=== PATIENT | male | born 1955 | race Caucasian/White ===

== ENCOUNTER 2020-05-15 08:42 | Outpatient (RCR) | payer BC, SELFPAY ==
[2020-05-15 09:02] VITALS: BP 198/84; PULSE 75; RESP 22; TEMP 36.6; BMI 62.8
--- NOTE | 2020-05-15 10:27 | HP.PCM_ITS ---
(1) Cellulitis of lower extremity Status: Chronic Qualifiers: Laterality: unspecified laterality Qualified Code(s): L03.119 - Cellulitis of unspecified part of limb Code(s): L03.119 - Cellulitis of unspecified part of limb (2) Obesity (BMI 35.0-39.9 without comorbidity) Status: Chronic Code(s): E66.9 - Obesity, unspecified (3) Peripheral vascular disease Status: Chronic Code(s): I73.9 - Peripheral vascular disease, unspecified History of Present Illness Date of Service: 05/15/20 Chief Complaint: Follow-up right lower leg ulcers for 2 weeks History of Wound: 65-year-old white obese male that has peripheral vascular disease with occlusions in his lower extremities. Has been seen here several times under different care for the same. Recently developed cellulitis in bilateral lower legs that he felt was the worst he seen really scared him he felt he almost could not walk. Seen in his [facility] doctors office and they did cultures which are unknown to us the results and put on doxycycline that he has been on for 20 days. He thinks it is a little bit better skin is not is warm to touch there is no apparent open areas at this point on his legs. But he is afraid that they are going to reopen. He has a high deductible insurance at this point but will be going on Medicare in July. He had met Dr. Malone a couple of years ago for the same but had no insurance was unable to afford the treatment. At this point we will continue using Xeroform to the scabbed areas and continue compression and follow-up in 2 weeks we also will order some lab work he is to follow-up with his family doctor. Past Medical History Past Medical History: Chronic Problems Obesity (BMI 35.0-39.9 without comorbidity) (Chronic) Lymphedema of both lower extremities (Chronic) Cellulitis of lower extremity (Chronic) Peripheral vascular disease (Chronic) Allergies/Adverse Reactions: Allergies aspirin Allergy (Verified 05/15/20 09:40) Hives ibuprofen Allergy (Verified 05/15/20 09:40) Hives Penicillins Allergy (Verified 05/15/20 09:40) Unknown Home Medications: Ambulatory Orders Medication Instructions Recorded Fluticasone 0.05% [Flonase Nasal 2 spray NASAL DAILY 09/30/16 Esmond] Furosemide [Lasix] 40 mg PO DAILY 12/20/15 Lisinopril [Zestril] 40 mg PO DAILY 12/20/15 Multivitamin [Daily Multiple 1 each PO DAILY 12/20/15 Vitamin] Naproxen Sodium 500 mg PO BID 12/20/15 Potassium Chloride Oral Tablet 10 meq PO DAILY 12/20/15 [K-Dur] traMADol [Ultram (G)] 50 mg PO Q4H PRN PRN 12/20/15 Amlodipine [Norvasc] 2.5 mg PO DAILY 05/15/20 Calcium Carbonate/Vitamin D3 1 ea PO DAILY 05/15/20 [Calcium 600 mg-D3 10 Mcg Sfgl] Lives: Alone Smoking Status: Former smoker Review of Systems Constitutional: Denies: Chills, Fever Eyes: Denies: Blurred vision, Drainage, Pain HEENT: Denies: Difficulty Hearing, Difficulty Swallowing, Sore Throat, Visual Changes Cardiovascular: Denies: Chest Pain, Palpitations, Syncope Respiratory: Denies: Cough, Shortness of Breath Gastrointestinal: Denies: Abdominal Pain, Nausea, Vomiting Genitourinary: Denies: Dysuria, Frequency Musculoskeletal: Reports: - - Lower extremity swelling. Denies: Joint Pain, Muscle pain Skin: Reports: Rash. Denies: Jaundice Neurological: Denies: Balance problems, Change in Speech, Difficulty swallowing, Focal weakness Psychiatric: Denies: Anxiety, Depression Endocrine: Denies: Change in Body Habitus Hematologic/ Lymphatic: Denies: Adenopathy - Physical Exam Vital Signs Temp Pulse Resp BP 97.9 F 75 22 H 198/84 H 05/15/20 09:02 05/15/20 09:02 05/15/20 09:02 05/15/20 09:02 General: Oriented x3, Cooperative, Well developed HEENT: Atraumatic, PERRLA Oral: Moist Mucosa Neck: Supple, No JVD Lungs: Clear to auscultation, Normal air movement Cardiovascular: Regular rate, Regular Rhythm Abdomen: Bowel Sounds Present, Soft, Non Tender, No Hepato-splenomegaly Extremities: No clubbing, Diminished Peripheral Pulses, Edema Skin: Rash Present - Bilateral lower legs Wound Measurements and Assessment WC - Nurse 1 - General Ulcer Measurement Start: 05/15/20 09:02 Freq: Status: Active Protocol: Activity Type Activity Date Activity User E-Sign Co-Sign Detail Recorded Client Recorded Date Recorded By Document 05/15/20 09:02 [facility] [id number] 05/15/20 09:24 [facility] 05/15/20 09:02 Wound Center Nurse 1 [Ulcer Assessment] #4- L GR TOE PLANTAR (FISSURE) -Combined with other wound No -Current Size (cm) - Length 0.1 -Current Size (cm) - Width 1.2 -Current Size (cm) - Depth 0.2 -Total Square Cm 0.12 -Date of Last Picture (Recall this 05/15/20 field) -Photo Taken Yes -Epithelialization None Present -Tunneling No -Undermining/Tunneling No -Circular Undermining No -Exudate Amt None Present -Wound Margin Distinct, Outline Attached -Granulation Amt Medium (34-66%) -Granulation Quality Red -Slough/Fibrin Yes -Necrosis Amt Small (1-33%) -Necrotic Tissue Type Adherent Slough -Texture (Suzanna-wound Skin Appearance) Assessed,Callus ,Scarring -Moisture (Suzanna-wound Skin Appearance Assessed,Dry/ ) Scaly -Color (Suzanna-wound Skin Appearance) Assessed -Temperature (Suzanna-wound Skin No Abnormality Appearance) (Pt Warm) -Tenderness on Palpation (Suzanna-wound No Skin Appearance) -Ulcer Cleansing Rinsed/ Irrigated with Saline -Foul Odor after Cleansing No -Anesthetic Used 5% Lidocaine Gel #3- R MUÑOZ -Combined with other wound No -Current Size (cm) - Length 2.5 -Current Size (cm) - Width 1.9 -Current Size (cm) - Depth 0.1 -Total Square Cm 4.75 -Date of Last Picture (Recall this 05/15/20 field) -Photo Taken Yes -Epithelialization None Present -Tunneling No -Undermining/Tunneling No -Circular Undermining No -Exudate Amt Small -Exudate Type Serosanguineous -Wound Margin Distinct, Outline Attached -Granulation Amt Large (67-100%) -Granulation Quality Red -Slough/Fibrin No -Necrosis Amt None Present (0 %) -Texture (Suzanna-wound Skin Appearance) Assessed, Scarring -Moisture (Suzanna-wound Skin Appearance Assessed ) -Color (Suzanna-wound Skin Appearance) Assessed, Hemosiderin Staining -Temperature (Suzanna-wound Skin No Abnormality Appearance) (Pt Warm) -Tenderness on Palpation (Suzanna-wound No Skin Appearance) -Ulcer Cleansing Rinsed/ Irrigated with Saline -Foul Odor after Cleansing No -Anesthetic Used 4% Lidocaine Solution #2- R LAT LE -Combined with other wound No -Current Size (cm) - Length 14 -Current Size (cm) - Width 28 -Current Size (cm) - Depth 0.1 -Total Square Cm 392 -Date of Last Picture (Recall this 05/15/20 field) -Photo Taken Yes -Epithelialization None Present -Tunneling No -Undermining/Tunneling No -Circular Undermining No -Exudate Amt Large -Exudate Type Serosanguineous -Wound Margin Distinct, Outline Attached -Granulation Amt Small (1-33%) -Granulation Quality [place] -Slough/Fibrin Yes -Necrosis Amt Large (67-100%) -Necrotic Tissue Type Adherent Slough -Texture (Suzanna-wound Skin Appearance) Assessed, Scarring -Moisture (Suzanna-wound Skin Appearance Assessed, ) Maceration -Color (Suzanna-wound Skin Appearance) Assessed, Erythema, Hemosiderin Staining,Palor -Temperature (Suzanna-wound Skin No Abnormality Appearance) (Pt Warm) -Tenderness on Palpation (Suzanna-wound No Skin Appearance) -Ulcer Cleansing Rinsed/ Irrigated with Saline -Foul Odor after Cleansing No -Anesthetic Used 4% Lidocaine Solution [Edema Assessment] -Lower Limb Edema Present Yes -Right Calf (cm) 61 -Right Ankle (cm) 39 -Left Calf (cm) 60 -Left Ankle (cm) 42 WC - Nurse 2 - General Ulcer CM Notes Start: 05/15/20 09:02 Freq: Status: Active Protocol: Activity Type Activity Date Activity User E-Sign Co-Sign Detail Recorded Client Recorded Date Recorded By Document 05/15/20 09:31 MW [id number] 05/15/20 09:38 MW 05/15/20 09:31 Wound Center Nurse 2 [Procedure/Treatment] #4- L GR TOE PLANTAR (FISSURE) -Time 09:35 -Correct Patient Yes -Correct Side, Site, Position Yes -Correct Procedure Yes -Procedure Performed No -Tunneling No -Undermining/Tunneling No -Circular Undermining No -Wound/Ulcer Outcome Not Healed -Ulcer Cleansing Not Cleansed -Bleeding Controlled with NA -Offloading No #3- R MUÑOZ -Time 09:36 -Correct Patient Yes -Correct Side, Site, Position Yes -Correct Procedure Yes -Procedure Performed No -Tunneling No -Undermining/Tunneling No -Circular Undermining No -Wound/Ulcer Outcome Not Healed -Ulcer Cleansing Not Cleansed -Bleeding Controlled with NA -Offloading No #2- R LAT LE -Time 09:36 -Correct Patient Yes -Correct Side, Site, Position Yes -Tunneling No -Undermining/Tunneling No -Circular Undermining No -Wound/Ulcer Outcome Not Healed -Ulcer Cleansing Not Cleansed -Foul Odor after Cleansing No -Bioengineered Tissue No -Bleeding Controlled with NA -Offloading No [See Physician Procedure note for Specifics] Pain Scale: 0-10 Numeric [Pain] -Is Patient Pain Free? Yes - Nurse 3 - General Ulcer D/C NN Start: 05/15/20 09:02 Freq: Status: Active Protocol: Activity Type Activity Date Activity User E-Sign Co-Sign Detail Recorded Client Recorded Date Recorded By Document 05/15/20 09:59 ROGER [id number] 05/15/20 10:01 ROGER 05/15/20 09:59 Wound Care Nurse 3 [Wound Dressing] #4- L GR TOE PLANTAR (FISSURE) -Ulcer Cleansing Rinsed/ Irrigated with Saline #3- R MUÑOZ -Ulcer Cleansing Rinsed/ Irrigated with Saline -Foul Odor after Cleansing No -Primary Dressing Applied NonAdherent Contact Layer -Other Dressing xeroform -Primary Dressing Covered/Secured Dry Gauze, with Secured with Tape #2- R LAT LE -Ulcer Cleansing Rinsed/ Irrigated with Saline -Foul Odor after Cleansing No -Primary Dressing Covered/Secured Dry Gauze, with Secured with Tape [Compression Applied] Right -Tubular Bandage Double Layer -Size of Tubigrip Used Size F -Size F ($) 2 Left -Tubular Bandage Double Layer -Size of Tubigrip Used Size F -Size F ($) 2 Pain Scale: 0-10 Numeric [Pain] -Is Patient Pain Free? Yes - Visit Discharge [Visit Discharge Information] -Discharge Condition Stable -Ambulatory Status Cane -Transportation Private Auto Musculoskeletal: No Tenderness to Palpation of Joints or Extremities Lymphatic: No Cervical, Supraclavicular, or Inguinal Adenopathy Neurological: Cranial nerves II-XII grossly intact, Neuro grossly intact Psych/Mental Status: Normal Affect, Appropriate Debridement Note Post-Debridement Measurements/Treatment MIRIAM - Nurse 2 - General Ulcer CM Notes Start: 05/15/20 09:02 Freq: Status: Active Protocol: Activity Type Activity Date Activity User E-Sign Co-Sign Detail Recorded Client Recorded Date Recorded By Document 05/15/20 09:31 MW [id number] 05/15/20 09:38 MW 05/15/20 09:31 Wound Center Nurse 2 #4- L GR TOE PLANTAR (FISSURE) -Time 09:35 -Correct Patient Yes -Correct Side, Site, Position Yes -Correct Procedure Yes -Procedure Performed No -Tunneling No -Undermining/Tunneling No -Circular Undermining No -Wound/Ulcer Outcome Not Healed -Ulcer Cleansing Not Cleansed -Bleeding Controlled with NA -Offloading No #3- R MUÑOZ -Time 09:36 -Correct Patient Yes -Correct Side, Site, Position Yes -Correct Procedure Yes -Procedure Performed No -Tunneling No -Undermining/Tunneling No -Circular Undermining No -Wound/Ulcer Outcome Not Healed -Ulcer Cleansing Not Cleansed -Bleeding Controlled with NA -Offloading No #2- R LAT LE -Time 09:36 -Correct Patient Yes -Correct Side, Site, Position Yes -Tunneling No -Undermining/Tunneling No -Circular Undermining No -Wound/Ulcer Outcome Not Healed -Ulcer Cleansing Not Cleansed -Foul Odor after Cleansing No -Bioengineered Tissue No -Bleeding Controlled with NA -Offloading No Pain Scale: 0-10 Numeric Is Patient Pain Free? Yes MIRIAM - Nurse 3 - General Ulcer D/C NN Start: 05/15/20 09:02 Freq: Status: Active Protocol: Activity Type Activity Date Activity User E-Sign Co-Sign Detail Recorded Client Recorded Date Recorded By Document 05/15/20 09:59 KR [id number] 05/15/20 10:01 KR 05/15/20 09:59 Wound Care Nurse 3 #4- L GR TOE PLANTAR (FISSURE) -Ulcer Cleansing Rinsed/ Irrigated with Saline #3- R MUÑOZ -Ulcer Cleansing Rinsed/ Irrigated with Saline -Foul Odor after Cleansing No -Primary Dressing Applied NonAdherent Contact Layer -Other Dressing xeroform -Primary Dressing Covered/Secured with Dry Gauze, Secured with Tape #2- R LAT LE -Ulcer Cleansing Rinsed/ Irrigated with Saline -Foul Odor after Cleansing No -Primary Dressing Covered/Secured with Dry Gauze, Secured with Tape Right -Tubular Bandage Double Layer -Size of Tubigrip Used Size F -Size F ($) 2 Left -Tubular Bandage Double Layer -Size of Tubigrip Used Size F -Size F ($) 2 Pain Scale: 0-10 Numeric Is Patient Pain Free? Yes WC - Visit Discharge Discharge Condition Stable Ambulatory Status Cane Transportation Private Auto No debridement was completed today Assessment/Plan CBC hemoglobin A1c and prealbumin Assessment: Cellulitis lower extremity bilateral. Lymphedema. Obesity Plan: Xeroform to scabbed areas cover with gauze Elizabet. Double layer Tubigrip to bilateral lower legs. Get labs drawn and will call with results. Follow-up in 1 week
[2020-05-15 10:48] LABS: Absolute Lymphocyte Count 2.27 X10^3/uL (0.83-4.51); Absolute Neutrophil Count 5.7 X10^3/uL (2.0-7.7); Basophil# 0.06 X10^3/uL; Basophil% 0.6 % (0-1); Eosinophil# 0.47 X10^3/uL; Hematocrit 39.4 % (40-54); Hemoglobin 11.9 g/dL (13.0-16.5); Lymphocyte # 2.27 X10^3/ul (4.0); Lymphocyte % 24.2 % (19-41); Mean Corp Hgb Conc 30.2 g/dL (32-36); Mean Corpuscular Hgb 27.3 pg (27.0-32.0); Mean Corpuscular Volume 90.4 fL (80-94); Mean Platelet Vol. 10.3 fl (6.2-12.0); Monocyte# 0.84 X10^3/uL; NRBC Flagged by Analyzer 0 % (0-5); Neutrophil # 5.68 X10^3/uL (2.7-7.7); Neutrophil % 60.7 % (47-70); Platelet Count 299 K/mm3 (150-450); RBC Distribution Width CV 15.3 % (11.6-14.6); RBC Distribution Width SD 50.9 fl (35.1-43.9); Red Blood Count 4.36 M/mm3 (4.6-6.2); White Blood Count 9.4 K/mm3 (4.4-11.0)
[2020-05-15 11:05] LABS: Hemoglobin A1c 5.2 % (3.8-5.6)
[2020-05-15 11:17] LABS: Prealbumin 24.7 mg/dL (20.0-40.0)
== END 2020-05-19 23:59 ==
LOC: WC 08:42
PROVIDERS: PCP Internal Medicine; Visit Provider Nurse Practitioner
DX: I73.9 Peripheral vascular disease, unspecified (principal); E66.9 Obesity, unspecified; L03.116 Cellulitis of left lower limb; L03.115 Cellulitis of right lower limb; I89.0 Lymphedema, not elsewhere classified; Z79.899 Other long term (current) drug therapy; Z87.891 Personal history of nicotine dependence
CPT/HCPCS: 36415; 83036; 84134; 85025; 99203; G0463

== ENCOUNTER 2020-05-29 11:00 | Outpatient (RCR) | payer BC, SELFPAY ==
[2020-05-20 00:40] VITALS: BP 198/84; PULSE 75; RESP 22; TEMP 36.6
[2020-05-29 10:50] VITALS: BP 179/81; PULSE 78; TEMP 36.9; BMI 62.8
[2020-05-29 11:22] VITALS: BP 168/75
--- NOTE | 2020-05-29 11:43 | PCM.WC.PN ---
(1) Cellulitis of lower extremity Status: Chronic Qualifiers: Code(s): L03.119 - Cellulitis of unspecified part of limb (2) Lymphedema of both lower extremities Status: Chronic Code(s): I89.0 - Lymphedema, not elsewhere classified (3) Obesity (BMI 35.0-39.9 without comorbidity) Status: Chronic Code(s): E66.9 - Obesity, unspecified (4) Peripheral vascular disease Status: Chronic Code(s): I73.9 - Peripheral vascular disease, unspecified Type of Wound Date of Service: 05/29/20 Chief Complaint: Follow-up right lower leg ulcers for 2 weeks History of Wound: 65-year-old white obese male that has peripheral vascular disease with occlusions in his lower extremities. Has been seen here several times under different care for the same. Recently developed cellulitis in bilateral lower legs that he felt was the worst he seen really scared him he felt he almost could not walk. Seen in his [facility] doctors office and they did cultures which are unknown to us the results and put on doxycycline that he has been on for 20 days. He thinks it is a little bit better skin is not is warm to touch there is no apparent open areas at this point on his legs. But he is afraid that they are going to reopen. He has a high deductible insurance at this point but will be going on Medicare in July. He had met Dr. Malone a couple of years ago for the same but had no insurance was unable to afford the treatment. At this point we will continue using Xeroform to the scabbed areas and continue compression and follow-up in 2 weeks we also will order some lab work he is to follow-up with his family doctor. Progress of Wound: So basically all of his wounds are closed patient will be discharged from the wound center and because of his insurance dilemma he he goes on Medicare in August. Suggested he return in August for repeat studies on his legs and follow-up with Dr. Malone for vascular for his blockages in the saphenous area on both legs it is apparent with the staining and the skin breakdown at that areas. Patient was encouraged also to quit drinking pop and to get out and move and patient encouraged to do stretching and to eat better and try to lose weight. Patient is continue with covering the areas that weep with gauze or with ABD pads then with Elizabet and continue compression. Labs show anemia and no malnutrition but he is on the low end of normal. - Physical Exam Vital Signs Temp Pulse Resp BP 98.4 F 78 22 H 168/75 H 05/29/20 10:50 05/29/20 10:50 05/20/20 00:40 05/29/20 11:22 General: Oriented x3, Cooperative, Well developed HEENT: Atraumatic, PERRLA Oral: Moist Mucosa Neck: Supple, No JVD Lungs: Clear to auscultation, Normal air movement Cardiovascular: Regular rate, Regular Rhythm Abdomen: Bowel Sounds Present, Soft, Non Tender, No Hepato-splenomegaly Extremities: No clubbing, No edema Skin: Ulcer/ Wound - Skin raised rashes circumferential to the right lower leg pedal edema xerosis of the bilateral feet Wound Measurements and Assessment WC - Nurse 1 - General Ulcer Measurement Start: 05/29/20 10:49 Freq: Status: Active Protocol: Activity Type Activity Date Activity User E-Sign Co-Sign Detail Recorded Client Recorded Date Recorded By Document 05/29/20 10:50 ROGER [id number] 05/29/20 11:00 ROGER 05/29/20 10:50 Wound Center Nurse 1 [Ulcer Assessment] #5 Right Lateral Superior -Current Size (cm) - Length 2.3 -Current Size (cm) - Width 2.2 -Current Size (cm) - Depth 0.1 -Total Square Cm 5.06 -Exudate Amt Medium -Exudate Type Serosanguineous -Wound Margin Distinct, Outline Attached -Granulation Amt Medium (34-66%) -Granulation Quality Red -Necrosis Amt Medium (34-66%) -Necrotic Tissue Type Adherent Slough -Texture (Suzanna-wound Skin Appearance) Assessed, Scarring -Moisture (Suzanna-wound Skin Appearance No Abnormality, ) Assessed -Color (Suzanna-wound Skin Appearance) Assessed, Hemosiderin Staining -Temperature (Suzanna-wound Skin No Abnormality Appearance) (Pt Warm) -Tenderness on Palpation (Suzanna-wound No Skin Appearance) -Ulcer Cleansing Rinsed/ Irrigated with Saline -Foul Odor after Cleansing No -Anesthetic Used 4% Lidocaine Solution #4- L GR TOE PLANTAR (FISSURE) -Current Size (cm) - Length 0.1 -Current Size (cm) - Width 0.1 -Current Size (cm) - Depth 0.1 -Total Square Cm 0.01 -Exudate Amt None Present -Wound Margin Distinct, Outline Attached -Granulation Amt None Present (0 %) -Necrosis Amt None Present (0 %) -Texture (Suzanna-wound Skin Appearance) Assessed, Scarring -Moisture (Suzanna-wound Skin Appearance No Abnormality, ) Assessed -Color (Suzanna-wound Skin Appearance) No Abnormality, Assessed -Temperature (Suzanna-wound Skin No Abnormality Appearance) (Pt Warm) -Tenderness on Palpation (Suzanna-wound No Skin Appearance) -Ulcer Cleansing Rinsed/ Irrigated with Saline -Foul Odor after Cleansing No -Anesthetic Used 4% Lidocaine Solution #3- R MUÑOZ -Current Size (cm) - Length 0.6 -Current Size (cm) - Width 0.7 -Current Size (cm) - Depth 0.1 -Total Square Cm 0.42 -Exudate Amt Medium -Exudate Type Serosanguineous -Wound Margin Distinct, Outline Attached -Granulation Amt Medium (34-66%) -Granulation Quality Red -Necrosis Amt Medium (34-66%) -Necrotic Tissue Type Adherent Slough -Texture (Suzanna-wound Skin Appearance) Assessed, Scarring -Moisture (Suzanna-wound Skin Appearance No Abnormality, ) Assessed -Color (Suzanna-wound Skin Appearance) Assessed, Hemosiderin Staining -Temperature (Suzanna-wound Skin No Abnormality Appearance) (Pt Warm) -Tenderness on Palpation (Suzanna-wound No Skin Appearance) -Ulcer Cleansing Rinsed/ Irrigated with Saline -Foul Odor after Cleansing No -Anesthetic Used 4% Lidocaine Solution #2- R LAT LE -Current Size (cm) - Length 14.3 -Current Size (cm) - Width 18 -Current Size (cm) - Depth 0.1 -Total Square Cm 257.4 -Exudate Amt Medium -Exudate Type Serosanguineous -Wound Margin Distinct, Outline Attached -Granulation Amt Medium (34-66%) -Granulation Quality Red -Necrosis Amt Medium (34-66%) -Necrotic Tissue Type Adherent Slough -Texture (Suzanna-wound Skin Appearance) Assessed, Scarring -Moisture (Suzanna-wound Skin Appearance No Abnormality, ) Assessed -Color (Suzanna-wound Skin Appearance) Assessed, Hemosiderin Staining -Temperature (Suzanna-wound Skin No Abnormality Appearance) (Pt Warm) -Tenderness on Palpation (Suzanna-wound No Skin Appearance) -Ulcer Cleansing Rinsed/ Irrigated with Saline -Foul Odor after Cleansing No -Anesthetic Used 4% Lidocaine Solution [Edema Assessment] -Right Calf (cm) 58.5 -Right Ankle (cm) 37.6 -Left Calf (cm) 59 -Left Ankle (cm) 36.7 MIRIAM - Nurse 2 - General Ulcer CM Notes Start: 05/29/20 10:49 Freq: Status: Active Protocol: Activity Type Activity Date Activity User E-Sign Co-Sign Detail Recorded Client Recorded Date Recorded By Document 05/29/20 11:04 MW [id number] 05/29/20 11:14 MW 05/29/20 11:04 Wound Center Nurse 2 [Procedure/Treatment] #5 Right Lateral Superior -Time 11:07 -Correct Patient Yes -Correct Side, Site, Position Yes -Correct Procedure Yes -Procedure Performed No -Post Debridement (cm) - Length 0 -Post Debridement (cm) - Width 0 -Post Debridement (cm) - Depth 0 -Total Square (Post) (cm) 0 -Wound/Ulcer Outcome Healed- Epithelialized #4- L GR TOE PLANTAR (FISSURE) -Time 11:05 -Correct Patient Yes -Correct Side, Site, Position Yes -Correct Procedure Yes -Procedure Performed No -Post Debridement (cm) - Length 0 -Post Debridement (cm) - Width 0 -Post Debridement (cm) - Depth 0 -Total Square (Post) (cm) 0 -Wound/Ulcer Outcome Healed- Epithelialized #3- R MUÑOZ -Time 11:05 -Correct Patient Yes -Correct Side, Site, Position Yes -Correct Procedure Yes -Procedure Performed No -Post Debridement (cm) - Length 0 -Post Debridement (cm) - Width 0 -Post Debridement (cm) - Depth 0 -Total Square (Post) (cm) 0 -Wound/Ulcer Outcome Healed- Epithelialized #2- R LAT LE -Time 11:12 -Correct Patient Yes -Correct Side, Site, Position Yes -Correct Procedure Yes -Procedure Performed No -Post Debridement (cm) - Length 0 -Post Debridement (cm) - Width 0 -Post Debridement (cm) - Depth 0 -Total Square (Post) (cm) 0 -Wound/Ulcer Outcome Healed- Epithelialized [See Physician Procedure note for Specifics] Pain Scale: 0-10 Numeric [Pain] -Is Patient Pain Free? Yes MIRIAM - Nurse 3 - General Ulcer D/C NN Start: 05/29/20 10:49 Freq: Status: Active Protocol: Activity Type Activity Date Activity User E-Sign Co-Sign Detail Recorded Client Recorded Date Recorded By Document 05/29/20 11:22 KR [id number] 05/29/20 11:30 KR 05/29/20 11:22 Wound Care Nurse 3 [Compression Applied] Right -Tubular Bandage Double Layer -Size of Tubigrip Used Size F -Size F ($) 2 Left -Tubular Bandage Double Layer -Size of Tubigrip Used Size F -Size F ($) 2 Vital Signs [Blood Pressure] -Blood Pressure (90/60-120/80 mm Hg) 168/75 H -Blood Pressure Mean (mm Hg) 106 -Source Monitor -Position Sitting -Blood Pressure Location Right Arm Pain Scale: 0-10 Numeric [Pain] -Is Patient Pain Free? Yes WC - Visit Discharge [Visit Discharge Information] -Discharge Condition Stable -Ambulatory Status Ambulatory,Cane -Transportation Private Auto Musculoskeletal: No Tenderness to Palpation of Joints or Extremities Lymphatic: No Cervical, Supraclavicular, or Inguinal Adenopathy Neurological: Cranial nerves II-XII grossly intact, Neuro grossly intact Psych/Mental Status: Normal Affect, Appropriate Debridement Note Post-Debridement Measurements/Treatment WC - Nurse 2 - General Ulcer CM Notes Start: 05/29/20 10:49 Freq: Status: Active Protocol: Activity Type Activity Date Activity User E-Sign Co-Sign Detail Recorded Client Recorded Date Recorded By Document 05/29/20 11:04 MW [id number] 05/29/20 11:14 MW 05/29/20 11:04 Wound Center Nurse 2 #5 Right Lateral Superior -Time 11:07 -Correct Patient Yes -Correct Side, Site, Position Yes -Correct Procedure Yes -Procedure Performed No -Post Debridement (cm) - Length 0 -Post Debridement (cm) - Width 0 -Post Debridement (cm) - Depth 0 -Total Square (Post) (cm) 0 -Wound/Ulcer Outcome Healed- Epithelialized #4- L GR TOE PLANTAR (FISSURE) -Time 11:05 -Correct Patient Yes -Correct Side, Site, Position Yes -Correct Procedure Yes -Procedure Performed No -Post Debridement (cm) - Length 0 -Post Debridement (cm) - Width 0 -Post Debridement (cm) - Depth 0 -Total Square (Post) (cm) 0 -Wound/Ulcer Outcome Healed- Epithelialized #3- R MUÑOZ -Time 11:05 -Correct Patient Yes -Correct Side, Site, Position Yes -Correct Procedure Yes -Procedure Performed No -Post Debridement (cm) - Length 0 -Post Debridement (cm) - Width 0 -Post Debridement (cm) - Depth 0 -Total Square (Post) (cm) 0 -Wound/Ulcer Outcome Healed- Epithelialized #2- R LAT LE -Time 11:12 -Correct Patient Yes -Correct Side, Site, Position Yes -Correct Procedure Yes -Procedure Performed No -Post Debridement (cm) - Length 0 -Post Debridement (cm) - Width 0 -Post Debridement (cm) - Depth 0 -Total Square (Post) (cm) 0 -Wound/Ulcer Outcome Healed- Epithelialized Pain Scale: 0-10 Numeric Is Patient Pain Free? Yes - Nurse 3 - General Ulcer D/C NN Start: 05/29/20 10:49 Freq: Status: Active Protocol: Activity Type Activity Date Activity User E-Sign Co-Sign Detail Recorded Client Recorded Date Recorded By Document 05/29/20 11:22 ROGER [id number] 05/29/20 11:30 ROGER 05/29/20 11:22 Wound Care Nurse 3 Right -Tubular Bandage Double Layer -Size of Tubigrip Used Size F -Size F ($) 2 Left -Tubular Bandage Double Layer -Size of Tubigrip Used Size F -Size F ($) 2 Vital Signs Blood Pressure (90/60-120/80 mm Hg) 168/75 H Blood Pressure Mean (mm Hg) 106 Source Monitor Position Sitting Blood Pressure Location Right Arm Pain Scale: 0-10 Numeric Is Patient Pain Free? Yes - Visit Discharge Discharge Condition Stable Ambulatory Status Ambulatory,Cane Transportation Private Auto No debridement was completed today Assessment/Plan Active Problems Obesity (BMI 35.0-39.9 without comorbidity) (Chronic) Lymphedema of both lower extremities (Chronic) Cellulitis of lower extremity (Chronic) Peripheral vascular disease (Chronic) Assessment: Cellulitis lower extremity bilateral. Lymphedema. Obesity Plan: ABDs to raised areas cover with gauze Elizabet. Double layer Tubigrip to bilateral lower legs. Follow-up in August for further studies after getting on Medicare.
== END 2020-05-29 11:43 | disposition home or self-care (01) ==
LOC: WC 11:00
PROVIDERS: PCP Internal Medicine; Visit Provider Nurse Practitioner
DX: I73.9 Peripheral vascular disease, unspecified (principal); L03.115 Cellulitis of right lower limb; L03.116 Cellulitis of left lower limb; I89.0 Lymphedema, not elsewhere classified; E66.9 Obesity, unspecified
CPT/HCPCS: 99213; G0463

== ENCOUNTER 2023-10-22 17:09 | Emergency (ER) | payer MEDICARE, SELFPAY ==
[2023-10-22 17:09] VITALS: BP 190/84; BP 196/84; PULSE 82; PULSE 87; RESP 14; RESP 22; TEMP 37.2; O2SAT 96; O2SAT 98
[2023-10-22 17:12] VITALS: BMI 58.5
--- NOTE | 2023-10-22 17:26 | EX.ED.DYSGE1 ---
HPI History of Present Illness Chief Complaint: Wound [facility] Medical History (Updated 10/22/23 @ 19:[address] Keith Redd, DO) Morbid obesity Nasal polyps Lymphedema Former smoker Sleep apnea Hypertension Home Medications ?Medication ?Instructions ?Recorded ?Last Taken ?Type fluticasone propionate 50 2 spray DAILY 12/20/15 Unknown History mcg/actuation nasal spray,suspension furosemide 40 mg tablet 40 mg PO DAILY 12/20/15 Unknown History lisinopril 40 mg tablet 40 mg PO DAILY 12/20/15 Unknown History multivitamin (Daily Multiple 1 ea PO DAILY 12/20/15 Unknown History tablet) naproxen sodium 220 mg capsule 500 mg PO Q12H PRN pain 12/20/15 Unknown History potassium chloride 20 mEq 10 meq PO DAILY 12/20/15 Unknown History tablet,extended release(part/cryst) (Klor-Con M) amlodipine 2.5 mg tablet 2.5 mg PO DAILY 05/15/20 Unknown History calcium carbonate 600 mg-vitamin 1 ea PO DAILY 05/15/20 Unknown History D3 10 mcg (400 unit) capsule sulfamethoxazole 800 1 tab PO BID #14 tabs 10/22/23 Unknown Rx mg-trimethoprim 160 mg tablet (Bactrim DS) Allergy/AdvReac Type Severity Reaction Status Date / Time aspirin Allergy Hives Verified 10/22/23 17:09 ibuprofen Allergy Hives Verified 10/22/23 17:09 Penicillins Allergy Unknown Verified 10/22/23 17:09 Social History Smoking Status: Former smoker EXAM Physical Exam Const Vital Signs: 10/22/23 17:09 10/22/23 17:09 10/22/23 18:12 Temperature 99 F 98.2 F Temperature Source Temporal Oral Pulse Rate 87 82 56 L Respiratory Rate 22 H 14 18 Blood Pressure 190/84 H 196/84 H 159/71 H Blood Pressure Mean 119 121 100 Pulse Ox 98 96 95 Oxygen Delivery Method Room Air Room Air Room Air 10/22/23 19:36 10/22/23 20:00 10/22/23 20:38 Temperature 97.7 F L 97.8 F 97.6 F L Temperature Source Temporal Temporal Pulse Rate 56 L 56 L 52 L Respiratory Rate 20 H 18 16 Blood Pressure 154/88 H 152/69 H 150/50 H Blood Pressure Mean 110 96 83 Pulse Ox 94 97 98 Oxygen Delivery Method Room Air MDM MDM MDM Narrative Medical decision making narrative: HISTORY OF PRESENT ILLNESS: 68-year-old male presents with concern for left foot infection. Notes drainage and blisters. Symptoms ongoing past week. Notes low-grade fevers. He denies vomiting. Denies history abdominal surgery. Notes history of lymphedema. Denies history of type 2 diabetes. REVIEW OF SYSTEMS: Pertinent positives: Skin redness, fever Pertinent negatives: Chest pain, shortness of breath, fever, cough, pain PHYSICAL EXAM: Nursing triage notes reviewed, Vital signs reviewed Constitutional: please see mdm HENT: MMM Eyes: Pupils equal round and reactive to light, Extraocular muscles intact Neck: No stridor, no JVD, full neck ROM Lungs: Clear to auscultation, No wheezing or rales. No increased work of breathing, no conversational dyspnea, no accessory muscle use, no nasal flaring. No respiratory distress noted Heart: Regular rate and rhythm, No murmurs, No rubs and No gallops, 2+ distal pulses (radial, femoral, posterior tibial) in all extremities Abdomen: Soft, there is no tenderness, rigidity, rebound or guarding, no obvious peritoneal signs, no palpable pulsatile abdominal masses, no auscultated abdominal bruit : No CVAT Extremities: No edema Neuro: No focal neurological deficits, cranial nerves II through XII intact, 5/5 strength in all extremities. Intact sensation to light touch in all extremities, 2+ reflexes bilateral patella tendons. Normal gait. No ataxia. Skin: Chronic venous stasis changes noted to bilateral lower extremities, exam consistent with lymphedema, noted erythema noted to dorsal surface of left foot, no fluctuance induration, there is skin breakdown over the dorsal surface and a chronic appearing ulceration to the left great toe on the plantar surface. There is no crepitus or bullae fluctuance or induration. Pain is not out of portion to exam. MEDICAL DECISION MAKING: Chief Complaint: Concern for foot infection External records reviewed: Reviewed prior encounters for lower extremity cellulitis from 2020 Factors affecting care: Hypertension, obesity, history of cellulitis in lower extremity, interventions, for edema in bilateral lower extremity Social determinants of health: none History obtained from others: none Consults: none [facility] Narrative: Patient is initially hypertensive with a blood pressure 190/84, he was tachypneic with respirate of 22 he is otherwise afebrile and nontoxic-appearing I considered the following differential diagnosis: Cellulitis, necrotizing fasciitis, septic arthritis, abscess There is no clinical exam evidence suggest necrotizing fasciitis, septic arthritis or abscess Patient is suffering from likely cellulitis. Will give empiric IV vancomycin (2 g), 500 cc of IV fluid and determine disposition based on results of lab studies Labs were obtained to ascertain any sign of systemic inflammation, endorgan hypoperfusion. ALL IMAGES (IF OBTAINED) HAVE BEEN PERSONALLY REVIEWED AND INTERPRETED BY MYSELF. CBC without leukocytosis, severe anemia, no thrombocytopenia BMP without evidence of significant electrolyte abnormalities, no anion gap, no acute kidney injury. Lactate is wnl indicating no end-organ hypoperfusion and/or hypoxia. X-ray left foot was read reviewed personally by myself shows no evidence of obvious bony abnormality or osteomyelitis. Awaiting radiologist interpretation. Radiology agrees my interpretation. On reevaluation patient's blood pressure improved 159/71, tachypnea resolved. Patient remained afebrile. He is appropriate for discharge home with oral antibiotics and strict return precautions. The patient and/or family, caregivers express understanding. The patient and/or family, caregivers agrees with the plan. Shared decision making: I will have a discussion with the patient and or visitors regarding risk/benefits of further testing or admission. They will be made aware of of the risk/benefits inherent in this decision they will be given the opportunity to voice understanding. Total critical care time today provided was at least 0 minutes. This excludes separately billable procedures. Critical care time (if documented) is secondary to the patient having high probability of clinically significant/life threatening deterioration in the patient's condition which required my urgent intervention. Impression: 1. Right lower extremity cellulitis 2. History of lymphedema Dispo: Discharge home This note was generated with [employer] dictation software. It may contain incorrect words, spelling, and punctuation that were not noted in review of the chart prior to signing. Lab Data Labs: Laboratory Results - last 24 hr 10/22/23 17:50 WBC 7.8 RBC 4.62 Hgb 12.8 L Hct 41.1 MCV 89.0 MCH 27.7 MCHC 31.1 L RDW Std Deviation 49.3 H RDW Coeff of Jesse 15.3 H Plt Count 237 MPV 10.5 Sodium 142 Potassium 4.0 Chloride 113 H Carbon Dioxide 27.0 Anion Gap 2 L BUN 19 H Creatinine 1.30 Estim Creat Clear Calc 102.99 Est GFR (MDRD) Af Amer 71 Est GFR (MDRD) Non-Af 58 L BUN/Creatinine Ratio 14.6 Glucose 102 Lactic Acid 0.9 Calcium 9.0 Radiography Diagnostic Testing: Clinical Impression(s) from Imaging Studies Foot X-Ray 10/22/23 19:05 IMPRESSION: No fracture. No dislocation. No definite destructive lesion of the bones. Dorsal soft tissue swelling. Electronically Signed: Castillo Bray MD at 20:11 EDT , Discharge Plan Triage Chief Complaint: Wound ED Provider: Keith Redd Dx/Rx/DC Orders Clinical Impression: Cellulitis of lower extremity Instructions: Cellulitis Prescriptions: New sulfamethoxazole-trimethoprim [Bactrim DS] 800-160 mg tablet 1 tab PO BID Qty: 14 0RF No Action lisinopril 40 MG tablet 40 mg PO DAILY furosemide 40 MG tablet 40 mg PO DAILY multivitamin [Daily Multiple] 1 EACH tablet 1 ea PO DAILY fluticasone propionate 1 SPRAY spray,suspension 2 spray NASAL DAILY potassium chloride [Klor-Con M20] 20 MEQ tablet 10 meq PO DAILY naproxen sodium 220 MG capsule 500 mg PO Q12H PRN (Reason: pain) amlodipine 2.5 MG tablet 2.5 mg PO DAILY calcium carbonate-vitamin D3 1 EACH capsule 1 ea PO DAILY Primary Care Provider: Nigel Gomez Referrals: Nigel Gomez MD [Primary Care Provider] - Wound,Center [Non-Staff] - Activity Restrictions/Additional Instructions: Thank you for trusting us with your care today! You have been diagnosed with cellulitis. Cellulitis is a skin infection caused by bacteria cellulitis is treated with antibiotics. Please take Tylenol (2 pills, 650 mg), ibuprofen (2 pills, 400 mg) every 6 hours as needed for pain and fever control. Please take antibiotics as prescribed and until course complete. Please return to the emergency department if your symptoms change or worsen. Specifically develop fever, vomiting, if you lose consciousness, redness increases and starts to spread up your leg towards your groin over a matter of hours. Please follow with your primary care physician for further outpatient evaluation and management. Print Language: New Zealander Disposition Disposition: Home, Self Care Discharge Date/Time: 10/22/23 20:42
[2023-10-22] MEDS: Vancomycin HCl 2,000 MG in 0.9% Normal Saline (500mL Bag) 500 ML 250 MG IV (17:54)
[2023-10-22] MEDS: 0.9% Normal Saline (500mL Bag) 500 ML 1000 ML IV (17:55)
[2023-10-22 17:59] LABS: Hematocrit 41.1 % (40-54); Hemoglobin 12.8 g/dL (13.0-16.5); Mean Corp Hgb Conc 31.1 g/dL (32-36); Mean Corpuscular Hgb 27.7 pg (27.0-32.0); Mean Platelet Vol. 10.5 fl (6.2-12.0); Platelet Count 237 K/mm3 (150-450); RBC Distribution Width CV 15.3 % (11.6-14.6); RBC Distribution Width SD 49.3 fl (35.1-43.9); Red Blood Count 4.62 M/mm3 (4.6-6.2); White Blood Count 7.8 K/mm3 (4.4-11.0)
[2023-10-22 18:12] VITALS: BP 159/71; PULSE 56; RESP 18; TEMP 36.8; O2SAT 95
[2023-10-22 18:13] LABS: Anion Gap 2 (5-15); BUN 19 mg/dL (7-18); BUN/Creat Ratio 14.6 RATIO (10-20); Chloride 113 mmol/L (98-107); EST Glomerular Filtration Rate 58 mL/min (>60); Est Glom Filt Rate - Afr Amer 71 mL/min (>60); Estimated Creatinine Clearance 102.99 ml/min; Glucose 102 mg/dL (74-106); Sodium Level 142 mmol/L (136-145)
[2023-10-22 18:32] LABS: Lactic Acid 0.9 mmol/L (0.4-1.9)
--- NOTE | 2023-10-22 19:05 | RAD_ITS ---
STUDY: X-RAY - LEFT FOOT CLINICAL: Male, 68 years old. pain r/o osteomyelitis TECHNIQUE: 2 view(s) of the foot. COMPARISON: None. FINDINGS: There is a dorsal talar neck ?beak?. Prominent degenerative changes of the visualized subtalar, talonavicular, calcaneocuboid, tarsal and tarsometatarsal articulations. Normal metatarsi. There is degenerative arthrosis of the metatarsophalangeal joint of the hallux . Normal tibial and fibular sesamoid bones. Normal interphalangeal joint of the great toe. Normal phalanges of the great toe. Normal second through fifth metatarsophalangeal joints. Normal interphalangeal joints and phalanges of the lesser toes. There is dorsal soft tissue swelling. There is no demonstrated fracture. RAD/Foot 2 Views IMPRESSION: No fracture. No dislocation. No definite destructive lesion of the bones. Dorsal soft tissue swelling. Electronically Signed: Castillo Bray MD at 20:11 EDT ,
[2023-10-22 19:36] VITALS: BP 154/88; PULSE 56; RESP 20; TEMP 36.5; O2SAT 94
[2023-10-22 20:00] VITALS: BP 152/69; PULSE 56; RESP 18; TEMP 36.6; O2SAT 97
[2023-10-22 20:38] VITALS: BP 150/50; PULSE 52; RESP 16; TEMP 36.4; O2SAT 98
== END 2023-10-22 20:42 | disposition home or self-care (01) ==
PROVIDERS: Emergency Provider Emergency Medicine; PCP Internal Medicine; Visit Provider Emergency Medicine
DX: L03.115 Cellulitis of right lower limb (principal); R06.82 Tachypnea, not elsewhere classified; I10 Essential (primary) hypertension; Z87.891 Personal history of nicotine dependence; R50.9 Fever, unspecified; E66.9 Obesity, unspecified
CPT/HCPCS: 73620; 80048; 83605; 85027; 96365; 96366; 99284; J7030; J7040

== ENCOUNTER 2023-11-10 13:38 | Outpatient (RCR) | payer MEDICARE, SELFPAY ==
[2023-11-10 14:21] VITALS: BP 152/80; PULSE 60; RESP 18; TEMP 35.7; BMI 58.3
--- NOTE | 2023-11-10 16:24 | HP.PCM_ITS ---
History of Present Illness Date of Service: 11/10/23 Chief Complaint: Follow-up right lower leg ulcers for 2 weeks History of Wound: 68-year-old white obese male that has peripheral vascular disease with occlusions in his lower extremities. Has been seen here several times under different care for the same. Recently developed cellulitis in bilateral lower legs that he felt was the worst he seen really scared him he felt he almost could not walk. Seen in his [facility] doctors office and they did cultures which are unknown to us the results and put on doxycycline that he has been on for 20 days. He thinks it is a little bit better skin is not is warm to touch there is no apparent open areas at this point on his legs. But he is afraid that they are going to reopen. He has a high deductible insurance at this point but will be going on Medicare in July. He had met Dr. Malone a couple of years ago for the same but had no insurance was unable to afford the treatment. At this point we will continue using Xeroform to the scabbed areas and continue compression and follow-up in 2 weeks we also will order some lab work he is to follow-up with his family doctor. Progress of Wound: Mr. Winslow is a 68-year-old male presenting with care center today for a full- thickness wound to the plantar aspect left hallux. Patient struck his toe when walking barefoot at home. Self treatment which has helped heal his wound. He does have history of peripheral vascular disease he sees Dr. Malone who is his vascular surgeon. He also admits to burning feet bilaterally with no treatment. Admits to trauma to left hallux. Denies constitutional symptoms. No other pedal complaints at this time. [facility] Medical History Morbid obesity Nasal polyps Lymphedema Former smoker Sleep apnea Hypertension Home Medications ?Medication ?Instructions ?Recorded ?Last Taken ?Type fluticasone propionate 50 2 spray DAILY 12/20/15 Unknown History mcg/actuation nasal spray,suspension furosemide 40 mg tablet 60 mg PO DAILY 12/20/15 Unknown History lisinopril 40 mg tablet 40 mg PO DAILY 12/20/15 Unknown History multivitamin (Daily Multiple 1 ea PO DAILY 12/20/15 Unknown History tablet) naproxen sodium 220 mg capsule 500 mg PO Q12H PRN pain 12/20/15 Unknown History potassium chloride 20 mEq 10 meq PO DAILY 12/20/15 Unknown History tablet,extended release(part/cryst) (Klor-Con M) amlodipine 2.5 mg tablet 2.5 mg PO DAILY 05/15/20 Unknown History calcium carbonate 600 mg-vitamin 1 ea PO DAILY 05/15/20 Unknown History D3 10 mcg (400 unit) capsule sulfamethoxazole 800 1 tab PO BID #14 tabs 10/22/23 Unknown Rx mg-trimethoprim 160 mg tablet (Bactrim DS) clotrimazole 1 % topical cream 1 applic topical BID 4 weeks #30 11/10/23 Unknown Rx grams Allergy/AdvReac Type Severity Reaction Status Date / Time sulfamethoxazole (From Allergy Mild Swelling Verified 11/10/23 14:18 Bactrim) trimethoprim (From Bactrim) Allergy Mild Swelling Verified 11/10/23 14:18 aspirin Allergy Hives Verified 11/10/23 14:18 ibuprofen Allergy Hives Verified 11/10/23 14:18 Penicillins Allergy Unknown Verified 11/10/23 14:18 Social History Smoking Status: Former smoker Vital Signs Vital Signs Vital Signs: 11/10/23 14:21 Temperature 96.3 F L Temperature Source Temporal Pulse Rate 60 Respiratory Rate 18 Blood Pressure 152/80 H Blood Pressure Mean 104 Blood Pressure Source Monitor Blood Pressure Position Supine Blood Pressure Location Left Forearm Oxygen Delivery Method Room Air Weight Weight: 205.931 kg Body Mass Index (BMI) 58.3 Physical Exam Narrative Vascular: DP and PT pulses are faintly palpable secondary to edema. Nonpitting edema appreciated to bilateral lower extremity. Hemosiderin deposits noted. No erythema or proximal streaking appreciated. Skin temperature great is warm to warm from proximal ankles to distal digits with no focal increase. Neurological: Light touch intact. Protective sensation is lightly diminished. Dermatological: Evidence of healed full-thickness ulceration to the plantar aspect the left hallux with sanguinous crust. Evidence of moccasin distribution appreciated bilateral. Musculoskeletal: No pain on palpation to left hallux. No pain with calf pressure. Debridement Note Debridement Note Post-Debridement Measurements and Additional Note: Post-Debridement Measurements/Treatment WC - Nurse 1 - General Ulcer Assessment Start: 11/10/23 14:13 Freq: Status: Active Protocol: [email or web address] Activity Type Activity Date Activity User E-sign Co-sign Detail Recorded Client Recorded Date Recorded By Document 11/10/23 14:21 [email or web address] [id number] 11/10/23 14:28 11/10/23 14:21 WC - Today's Visit Information Type of service Initial Visit Arrival Mode Ambulatory,Cane Patient Identification Verified (Name & Yes ) Height and Weight Height 6 ft 2 in Weight 205.931 kg Weight in Pounds 454.0 lbs Weight Measurement Method Stated by Patient Body Mass Index (BMI) 58.3 BMI Classification Obese BSA - Damaris 3.08 Vital Signs Temperature (97.8 F-99.1 F) 96.3 F L Temperature Source Temporal Pulse Rate (60-100) 60 Pulse Location Monitor Respiratory Rate (12-18) 18 Respiratory rate source Observation Oxygen Delivery Method Room Air Blood Pressure (90/60-120/80) 152/80 H Blood Pressure Mean 104 Source Monitor Position Supine Blood Pressure Location Left Forearm History Since Last Visit- (Skip if this is Patient's initial visit) Left Footwear Regular Shoe Right Footwear Regular Shoe Pain Scale: 0-10 Numeric Is Patient Pain Free? Yes WC - Nurse 1 - General Ulcer Measurement Start: 11/10/23 14:13 Freq: Status: Active Protocol: Activity Type Activity Date Activity User E-sign Co-sign Detail Recorded Client Recorded Date Recorded By Document 11/10/23 14:21 [email or web address] [id number] 11/10/23 14:28 11/10/23 14:21 Wound Center Nurse 1 #6 LT HALLUX -Current Size (cm) - Length 0.1 -Current Size (cm) - Width 0.1 -Current Size (cm) - Depth 0.1 -Total Square Cm 0.01 -Date of Last Picture (Recall this 11/10/23 field) -Exudate Amt None Present -Texture (Suzanna-wound Skin Appearance) Assessed,Callus -Moisture (Suzanna-wound Skin Appearance) Assessed -Color (Suzanna-wound Skin Appearance) Assessed -Temperature (Suzanna-wound Skin No Abnormality Appearance) (Pt Warm) -Tenderness on Palpation (Suzanna-wound No Skin Appearance) -Ulcer Cleansing Rinsed/ Irrigated with Saline -Foul Odor after Cleansing No WC - Nurse 2 - General Ulcer CM Notes Start: 11/10/23 14:13 Freq: Status: Active Protocol: Activity Type Activity Date Activity User E-sign Co-sign Detail Recorded Client Recorded Date Recorded By Document 11/10/23 14:41 [email or web address] [id number] 11/10/23 14:42 11/10/23 14:41 Wound Center Nurse 2 -Correct Patient No -Correct Side, Site, Position No -Correct Procedure No -Procedure Performed No -Post Debridement (cm) - Length 0 -Post Debridement (cm) - Width 0 -Post Debridement (cm) - Depth 0 -Total Square (Post) (cm) 0 -Area of Debridement (cm) - Length 0 -Area of Debridement (cm) - Width 0 -Total Square (Area) (cm) 0 -Wound/Ulcer Outcome Healed- Epithelialized Pain Scale: 0-10 Numeric Is Patient Pain Free? Yes WC - Nurse 3 - General Ulcer D/C NN Start: 11/10/23 14:13 Freq: Status: Active Protocol: Activity Type Activity Date Activity User E-sign Co-sign Detail Recorded Client Recorded Date Recorded By Document 11/10/23 14:42 [id number] 11/10/23 14:43 11/10/23 14:42 Is Patient Pain Free? Yes WC - Visit Discharge Discharge Condition Stable Ambulatory Status Ambulatory,Cane Transportation Private Auto Medication Reconcilliation completed & Yes provided to patient/care provider Clinical Summary of Care Provided Yes Assessment/Plan Assessment/Plan (1) Tinea pedis: CODE(S): B35.3 - Tinea pedis QUALIFIERS: Laterality: bilateral Qualified Code(s): B35.3 - Tinea pedis PLAN: Patient was examined and evaluated. All findings were discussed with the patient. All questions were answered to the patient's satisfaction. The patient's left hallux toe shows evidence of hyperkeratotic tissue and heel wound. No concern for infection. The patient shows evidence of athlete's foot to the bilateral plantar skin. Patient we placed on clotrimazole 1% twice daily for 30 days with 2 refills. Patient educated how to apply the topical antifungal cream. Patient continue to check his feet twice per day and work his compression bandages. Patient is to call the wound care center with any question or concerns. Patient will follow-up as needed. (2) Left foot pain: CODE(S): M79.672 - Pain in left foot (3) Skin ulcer of left great toe: CODE(S): L97.529 - Non-pressure chronic ulcer of other part of left foot with unspecified severity QUALIFIERS: Non-pressure ulcer stage: limited to breakdown of skin Qualified Code(s): L97.521 - Non-pressure chronic ulcer of other part of left foot limited to breakdown of skin
--- NOTE | 2023-11-11 14:02 | WC ---
PHOTO 11/10/23 LEFT HALLUX
== END 2023-11-11 09:22 | disposition home or self-care (01) ==
LOC: WC 13:38
PROVIDERS: PCP Internal Medicine; Referring Provider Emergency Medicine; Visit Provider Podiatrist Foot & Ankle Surgery
DX: Z09 Encounter for follow-up examination after completed treatment for conditions other than malignant neoplasm (principal); Z68.43 Body mass index [BMI] 50.0-59.9, adult; I73.9 Peripheral vascular disease, unspecified; I10 Essential (primary) hypertension; B35.3 Tinea pedis; E66.9 Obesity, unspecified; Z79.899 Other long term (current) drug therapy; Z87.891 Personal history of nicotine dependence
CPT/HCPCS: 99213; G0463

== ENCOUNTER 2023-12-15 13:54 | Outpatient (RCR) | payer MEDICARE, SELFPAY ==
[2023-12-15 14:40] VITALS: BP 166/100; PULSE 96; TEMP 36.4
== END 2023-12-20 23:59 | disposition home or self-care (01) ==
LOC: WC 13:54
PROVIDERS: PCP Internal Medicine; Referring Provider Nurse Practitioner Family; Visit Provider Podiatrist Foot & Ankle Surgery
DX: Z09 Encounter for follow-up examination after completed treatment for conditions other than malignant neoplasm (principal); L30.9 Dermatitis, unspecified; I73.9 Peripheral vascular disease, unspecified; Z79.899 Other long term (current) drug therapy
CPT/HCPCS: 99213; G0463

== ENCOUNTER 2023-12-29 14:01 | Outpatient (RCR) | payer MEDICARE, SELFPAY ==
[2023-12-21 00:27] VITALS: BP 166/100; PULSE 96; TEMP 36.4
[2023-12-29 14:48] VITALS: BP 167/94; PULSE 69; RESP 18; TEMP 36.4
== END 2023-12-29 15:00 | disposition home or self-care (01) ==
LOC: WC 14:01
PROVIDERS: PCP Internal Medicine; Referring Provider Nurse Practitioner Family; Visit Provider Podiatrist Foot & Ankle Surgery
DX: I73.89 Other specified peripheral vascular diseases (principal); R60.0 Localized edema; S90.112A Contusion of left great toe without damage to nail, initial encounter; X58.XXXA Exposure to other specified factors, initial encounter; L30.9 Dermatitis, unspecified; E66.9 Obesity, unspecified; Z79.899 Other long term (current) drug therapy
CPT/HCPCS: 99213; G0463